=== PATIENT | female | born 1945 | race Caucasian/White ===

== ENCOUNTER 2016-10-16 15:06 | Emergency (ER) | payer MEDICARE ==
[~2016-10-16] VITALS: Ht 157.5 cm; Wt 63.2 kg
[~2016-10-16 15:06] MED LIST: LEVO75TA4 PO
[2016-10-16 15:09] VITALS: BP 147/92; PULSE 63; RESP 18; O2SAT 100
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
[2016-10-16 16:05] LABS: BASOPHILS % (AUTO) 0.4 % (0-3); EOSINOPHILS % (AUTO) 9.5 % (0-5); MONOCYTES % (AUTO) 7.2 % (4-12); Mean Corpuscular Hemoglobin 30.7 pg (27.0-35.0); NEUTROPHILS % (AUTO) 42.6 % (40-74); Platelet Count 268 bil/L (150-400)
--- NOTE | 2016-10-16 16:09 | DRSVH ---
PROCEDURE: X-RAY CHEST ONE VIEW, PORTABLE ([id number]) INDICATIONS: chest pain TECHNIQUE: One view of the chest was acquired. COMPARISON: [facility], , CHEST 1VW, 11/09/2014, 16:13. FINDINGS: Surgical changes and devices: None. Lungs and pleura: No pleural effusions or pneumothorax. Lungs are clear. Mediastinum: Mediastinal contours appear normal. Heart size is normal. Bones and chest wall: No suspicious bony lesions. Overlying soft tissues appear unremarkable. IMPRESSION: No acute disease Dictated by: Koko Simon M.D. on 10/16/2016 at 15:51 Approved by: Koko Simon M.D. on 10/16/2016 at 16:08
[2016-10-16 16:18] VITALS: BP 167/70; PULSE 65; RESP 20; O2SAT 100
[2016-10-16 16:27] LABS: TROPONIN T < 0.010 ug/L (0.0-0.011)
[2016-10-16 16:37] LABS: Magnesium 1.8 mg/dL (1.6-2.6)
[2016-10-16] MEDS ORDERED: D-ME118S8 PO (17:16)
[2016-10-16 17:32] VITALS: BP 153/68; PULSE 69; RESP 16; O2SAT 100
== END 2016-10-16 17:34 | disposition home or self-care (01) ==
LOC: SED 15:06
DX: R07.89 Other chest pain (principal); R05 Cough; R06.02 Shortness of breath; R42 Dizziness and giddiness; R53.83 Other fatigue; E03.9 Hypothyroidism, unspecified; Z88.0 Allergy status to penicillin; Z88.5 Allergy status to narcotic agent; Z88.8 Allergy status to other drugs, medicaments and biological substances

== ENCOUNTER 2016-11-22 02:17 | Day surgery (SDC) | payer MEDICARE ==
[~2016-11-22] VITALS: Ht 157.5 cm; Wt 61.2 kg
[~2016-11-22 02:17] MED LIST changes: +D-ME118S8 PO
[2016-11-22 08:21] VITALS: BP 131/78; PULSE 77; RESP 17; O2SAT 94
[2016-11-22] MEDS ORDERED: THIA100T64 PO (08:24)
[2016-11-22] MEDS ORDERED: UBID100C25 PO (08:24)
[2016-11-22] MEDS ORDERED: CHOL500051 PO (08:24)
[2016-11-22] MEDS ORDERED: LACT1CAP73 PO (08:24)
[2016-11-22] MEDS ORDERED: CALC600T12 PO (08:24)
[2016-11-22] MEDS ORDERED: 0.9% Sodium Chloride 1,000 ML IV PRN ×2 (08:56→09:07)
[2016-11-22] MEDS ORDERED: fentaNYL-PF 50 mCg/mL 2 mL Inj IVPUSH PRN ×2 (09:00→09:10)
[2016-11-22] MEDS ORDERED: Sodium Chloride LOK Flush 10 mL Syringe IV PRN ×2 (09:00→09:10)
--- NOTE | 2016-11-22 09:25 | PCM.ENDEGD ---
EGD Date of Service: Nov 22, 2016 Physician Sebastian Gunter MD Pre Procedure Diagnosis: Reflux Post Procedure Dx & Findings: Esophageal irritation granular gastric mucosa fundic polyps Procedure Esophagogastroduodenoscopy PROCEDURE IN DETAIL: After proper sedation, Olympus video endoscope was inserted into patient's mouth and esophagus was successfully intubated. Scope introduced esophagus. Esophagus showed normal shiny whitish mucosa consistent with squamous cell component. Z line was intact at 35 cm from the incisors. There was no displacement of Z line. However on the Z line itself, there was mild swelling and irritation. Biopsies obtained. Scope further advanced to the stomach. Stomach showed normal shiny mucosa with normal appearing rugae folds without any ulcer mass erosion. However the body of the stomach showed granular mucosa diffusely. Biopsies obtained. Few 1 mm or less fundic polyps noted. Sampling biopsies obtained. Cardia fundus body antrum pylorus were all visualized. Retroflexion was done. Stomach was easily inflated and deflatable using air. Scope further advanced to the distal duodenum. Duodenum revealed normal villous structures with normal appearing folds without any mass ulcer erosion. Impression Esophageal irritation granular gastric mucosa fundic polyps Presedation Assessment Risks and Benefits Informed consent was obtained from the patient after all risks and benefits including but not limited to drug reaction, infection, pain, bleeding, perforation, as well as alternatives were discussed. Patient monitoring Continuous pulse oximetry, cardiac monitoring, blood pressure monitoring, IV access, and oxygen at 2L per nasal cannula. Periprocedural Fentanyl: Fentanyl 75mcg Incrementally Midazolam: Midazolam 3mg Incrementally Complications There were no periprocedural complications identified. Post Procedure Plan Post Procedure Recommendations 1. Restrict activities today. 2. Resume normal activities in the morning. 3. Resume medications. 4. GERD behavioral modification: - Avoid fatty, acidic, spicy, large meals - Do not lie down after meals - Do not eat or drink anything for at least 2 1/2 hours before going to bed at night - Discontinue tobacco and alcohol - Decrease or avoid caffeine - Avoid chocolate and mints - Decrease weight - Avoid aspirin and non steroidal anti-inflammatory agents (NSAID) such as Aleve, Advil, Mobic, Naproxen, Ibuprofen, etc 5. Add proton pump inhibitor. Take 30 minutes before 1st meal of the day. 6. Patient informed of normal post procedure side effects as bloating, drowsiness, blood streaking in the stool 7. If gastric biopsy reveal H.pylori, continue with appropriate treatment 8. If small bowel biopsy reveals celiac, continue with appropriate treatment 9. Please don't hesitate to call me with any questions Sebastian Gunter MD Nov 22, 2016 09:25
[2016-11-22 09:34] VITALS: BP 121/76; PULSE 69; RESP 14; O2SAT 99
[2016-11-22 09:44] VITALS: BP 115/70; PULSE 68; RESP 14; O2SAT 98
[2016-11-22 09:54] VITALS: BP 109/65; PULSE 66; RESP 14; O2SAT 100
[2016-11-22 10:04] VITALS: BP 111/70; PULSE 66; RESP 14; O2SAT 96
--- NOTE | 2016-11-23 11:54 | PATH ---
SURGICAL PATHOLOGY Attending Physician:Sebastian Gunter M.D. CASE STATUS: Signed Out PATIENT NAME: RASHMI LEMON PID: [id number] : 1945 DATE COLLECTED:11/22/2016 17:11 SPECIMEN: 1: Gastric, Biopsy 2: Gastric, Biopsy 3: Esophagus, Biopsy CLINICAL HISTORY: 1. GASTRIC BX 2. FUNDAL POLYP 3. ESOPHAGUS BX FINAL DIAGNOSIS: 1.GASTRIC BIOPSY: MINIMAL SUPERFICIAL CHRONIC GASTRITIS INVOLVING FUNDIC MUCOSA. Negative for evidence of Helicobacter on H&E stain. Negative for intestinal metaplasia. Negative for dysplasia and malignancy. 2.FUNDIC POLYP: BENIGN FUNDIC GLAND POLYP, NEGATIVE FOR ATYPIA. Negative for evidence of Helicobacter on H&E stain. Negative for intestinal metaplasia. 3.ESOPHAGUS BIOPSY: FRAGMENT OF GASTRIC CARDIA-TYPE MUCOSA WITH NO SQUAMOUS MUCOSA IDENTIFIED. Negative for specialized metaplasia of Cleaning' s esophagus. Negative for dysplasia and malignancy. ICD10 K31.7 GROSS DESCRIPTION: The specimen is received in three formalin filled containers labeled with the patient's name. 1). The specimen is sublabeled "gastric" and consists of 2 portions of tissue which aggregate to 0.3 x 0.3 x 0.2 CM. The specimen is entirely submitted in cassette 1A. 2). The specimen is sublabeled "fundal polyp" and consists of 2 portions of tissue which aggregate to 0.2 x 0.2 x 0.2 CM. The specimen is entirely submitted in cassette 2A. 3). The specimen is sublabeled "esophagus" and consists of a 0.2 x 0.2 x 0.2 CM portion of tissue which is entirely submitted in cassette 3A. 11/22/2016 [facility] MICRO DESCRIPTION: See diagnosis. ICD-9 CODES: CPT CODES: 1: 17760 2: 80394 3: [id number] Electronically Signed Out David Emmanuel MD [facility], [place] [address] Technical component performed at [facility], [facility] [address], [place], [address]
== END 2016-11-22 23:59 | disposition home or self-care (01) ==
LOC: END 02:17
PROVIDERS: ATTEND Internal Medicine
DX: K29.50 Unspecified chronic gastritis without bleeding (principal); K31.89 Other diseases of stomach and duodenum; K31.7 Polyp of stomach and duodenum; E03.9 Hypothyroidism, unspecified; K21.9 Gastro-esophageal reflux disease without esophagitis; E78.5 Hyperlipidemia, unspecified; N30.20 Other chronic cystitis without hematuria; F41.9 Anxiety disorder, unspecified
CPT/HCPCS: 43239; G0500; J2250; J3010; J7030